=== PATIENT | male | born 1940 | race Caucasian/White ===

== ENCOUNTER → 2016-04-05 | Outpatient (CLI) | payer MEDICARE, OTHER ==
[~2016-04-05] MED LIST: ALBUTEROL2.5 MG/3 M INH; DALIRESP500 MCG PO; FLOMAX0.4 MG PO; PRINIVIL20 MG PO; PROVENTIL HFA6.7 GM INH; SINEMET 25-1001 TAB PO; TYLENOL500 MG PO; VITAMIN D35000 UNIT PO
== END | disposition short-term general hospital (02) ==
LOC: CLONCO 14:29
DX: C34.90 Malignant neoplasm of unspecified part of unspecified bronchus or lung (principal)

== ENCOUNTER → 2016-04-12 | Outpatient (CLI) | payer MEDICARE, OTHER | END | disposition short-term general hospital (02) | LOC: CLCARD 08:56 | DX: I25.10 Atherosclerotic heart disease of native coronary artery without angina pectoris (principal); R06.82 Tachypnea, not elsewhere classified; I10 Essential (primary) hypertension; Z79.82 Long term (current) use of aspirin; Z79.899 Other long term (current) drug therapy ==

== ENCOUNTER → 2016-05-04 | Outpatient (CLI) | payer MEDICARE, OTHER | END | disposition short-term general hospital (02) | LOC: CLPULM 07:22 | DX: J44.9 Chronic obstructive pulmonary disease, unspecified (principal); R91.1 Solitary pulmonary nodule; G20 Parkinson's disease ==

== ENCOUNTER → 2016-06-28 | Outpatient (CLI) | payer MEDICARE, OTHER | END | disposition short-term general hospital (02) | LOC: CLONCO 08:32 | DX: Z08 Encounter for follow-up examination after completed treatment for malignant neoplasm (principal); R91.1 Solitary pulmonary nodule; Z85.118 Personal history of other malignant neoplasm of bronchus and lung; Z92.3 Personal history of irradiation; Z92.21 Personal history of antineoplastic chemotherapy ==